=== PATIENT | female | born 1985 | race Caucasian/White ===

== ENCOUNTER 2018-10-19 23:19 | Outpatient (CLI) | payer MEDICAID | END 2018-10-20 01:45 | disposition home or self-care (01) | LOC: OBT 23:19 → L-D 23:21 | DX: O24.419 Gestational diabetes mellitus in pregnancy, unspecified control (principal); O36.8330 Maternal care for abnormalities of the fetal heart rate or rhythm, third trimester, not applicable or unspecified; Z3A.38 38 weeks gestation of pregnancy | CPT/HCPCS: 76815; 76818; 82962 ==

== ENCOUNTER 2018-10-21 10:10 | Inpatient (IN) | payer MEDICAID ==
[2018-10-21] MEDS ORDERED: METHYLERGONOVINE 0.2 MG INJ IM (10:30)
[2018-10-21] MEDS ORDERED: OXYCODONE/ASPIRIN (4.88/325) TAB PO (10:30)
[2018-10-21] MEDS ORDERED: OXYTOCIN 30 UNITS/LR 500 ML IV ×2 (10:30→11:00)
[2018-10-21] MEDS ORDERED: CARBOPROST 250 MCG INJ IM ×2 (10:30→11:00)
[2018-10-21] MEDS ORDERED: IBUPROFEN 600 MG TAB PO (10:30)
[2018-10-21] MEDS ORDERED: BUTORPHANOL 2 MG INJ IV (10:30)
[2018-10-21] MEDS ORDERED: MISOPROSTOL 200 MCG TAB PR ×2 (10:30→11:00)
[2018-10-21] MEDS: LACTATED RINGER'S 1,000 ML IV (10:33)
[2018-10-21] MEDS: AMPICILLIN 2 GM/NS (PMX) 100 ML IV (10:37)
[2018-10-21] MEDS: LIDOCAINE 1% (MPF) 30 ML INJ INJ (10:37)
[2018-10-21] MEDS ORDERED: HYDROCODONE/APAP (5/325) TAB PO ×2 (11:00)
[2018-10-21] MEDS ORDERED: SENNA/DOCUSATE NA (8.6MG/50MG) TAB PO (11:00)
[2018-10-21] MEDS ORDERED: DIPHENHYDRAMINE 50 MG INJ IV (11:00)
[2018-10-21] MEDS ORDERED: MAGNESIUM HYDROXIDE 30ML CUP PO (11:00)
[2018-10-21] MEDS ORDERED: ONDANSETRON 4 MG INJ IV (11:00)
[2018-10-21] MEDS ORDERED: NA PHOSPHATE/BIPHOS 133 ML ENEMA PR (11:00)
[2018-10-21] MEDS ORDERED: DIPHENHYDRAMINE 25 MG CAP PO (11:00)
[2018-10-21] MEDS ORDERED: ONDANSETRON 4 MG TAB PO (11:00)
[2018-10-21 11:12] LABS: ADD MAN DIFF? NO
[2018-10-21 11:16] LABS: WHITE BLOOD COUNT 14.4 10^3/ul (4.8-10.8)
[2018-10-21 11:16] LABS: BASOPHILS % 0.3 % (0.0-2.0); EOSINOPHILS % 0.1 % (0.0-7.0); HEMATOCRIT 34.5 % (37.0-47.0); HEMOGLOBIN 11.4 g/dl (12.0-16.0); LYMPHOCYTES # 1.7 10^3/ul (0.8-2.9); LYMPHOCYTES % 11.8 % (15.0-51.0); MEAN CORPUSCULAR HEMOGLOBIN 27.9 pg (29.0-33.0); MEAN CORPUSCULAR VOLUME 84.6 fl (82.0-101.0); MEAN PLATELET VOLUME 9.7 fl (7.4-10.4); MONOCYTE # 0.5 10^3/ul (0.3-0.9); MONOCYTES % 3.3 % (0.0-11.0); NEUTROPHIL # 12.1 10^3/ul (1.6-7.5); NEUTROPHILS % 84.1 % (39.0-77.0); PLATELET COUNT 330 10^3/UL (140-415); RED BLOOD COUNT 4.08 10^6/ul (4.20-5.40); RED CELL DISTRIBUTION WIDTH 14.6 % (11.5-14.5)
[2018-10-21 11:37] LABS: URIC ACID 6.4 mg/dl (3.1-7.9)
[2018-10-21 11:37] LABS: ALANINE AMINOTRANSFERASE 43 IU/L (13-69); ALBUMIN 3.9 g/dl (3.3-4.9); ALBUMIN/GLOBULIN RATIO 1.02; ALKALINE PHOSPHATASE 306 IU/L (42-121); ANION GAP 9 (5-13); ASPARTATE AMINO TRANSFERASE 30 IU/L (15-46); BILIRUBIN,INDIRECT 0.1 mg/dl (0-1.1); BILIRUBIN,TOTAL 0.1 mg/dl (0.2-1.3); BLOOD UREA NITROGEN 10 mg/dl (7-20); CALCIUM 9.4 mg/dl (8.4-10.2); CARBON DIOXIDE 20 mmol/L (21-31); CHLORIDE 108 mmol/L (97-110); CREATININE 0.44 mg/dl (0.44-1.00); Estimated GFR > 60 mL/min (>60); GLUCOSE 126 mg/dl (70-220); POTASSIUM 3.7 mmol/L (3.5-5.1); SODIUM 137 mmol/L (135-144); TOTAL PROTEIN 7.7 g/dl (6.1-8.1)
[2018-10-21 11:51] LABS: PROTIME 12.3 Sec (11.9-14.9)
[2018-10-21] MEDS: IBUPROFEN 600 MG TAB PO ×2 (12:21→17:35)
[2018-10-21] MEDS: OXYTOCIN 30 UNITS/LR 500 ML IV ×2 (12:22)
[2018-10-21 12:42] LABS: PARTIAL THROMBOPLASTIN TIME 26.9 Sec (23.0-35.0)
[2018-10-21] MEDS: AMPICILLIN 1 GM/NS (PMX) 50 ML IV (14:30)
[2018-10-21] MEDS: LACTATED RINGER'S 1,000 ML IV* ×2 (15:54→18:52)
[2018-10-21 16:03] LABS: HEPATITIS B SURFACE ANTIGEN NEGATIVE (NEGATIVE)
[2018-10-21] MEDS: WITCH HAZEL/GLYCERIN PAD PR (19:17)
[2018-10-21] MEDS: BENZOCAINE 20% 56 ML SPRAY TOP (19:17)
[2018-10-21] MEDS: DIBUCAINE 1% 30 GM OINT TOP (19:18)
[2018-10-21 23:24] LABS: RAPID PLASMA REAGIN NONREACTIVE (NR)
[2018-10-22] MEDS: SENNA/DOCUSATE NA (8.6MG/50MG) TAB PO ×3 (00:22→21:18)
[2018-10-22] MEDS: IBUPROFEN 600 MG TAB PO ×4 (00:22→18:00)
[2018-10-22] MEDS: LACTATED RINGER'S 1,000 ML IV* ×2 (05:17→18:52)
[2018-10-22 07:36] LABS: ADD MAN DIFF? NO
[2018-10-22 07:49] LABS: WHITE BLOOD COUNT 10.8 10^3/ul (4.8-10.8)
[2018-10-22 07:49] LABS: BASOPHILS % 0.3 % (0.0-2.0); EOSINOPHILS # 0.1 10^3/ul (0.0-0.5); EOSINOPHILS % 0.7 % (0.0-7.0); HEMATOCRIT 25.7 % (37.0-47.0); HEMOGLOBIN 8.3 g/dl (12.0-16.0); LYMPHOCYTES % 27.9 % (15.0-51.0); MEAN CORPUSCULAR HEMOGLOBIN 27.9 pg (29.0-33.0); MEAN CORPUSCULAR HGB CONC 32.3 g/dl (32.0-37.0); MEAN CORPUSCULAR VOLUME 86.2 fl (82.0-101.0); MEAN PLATELET VOLUME 9.6 fl (7.4-10.4); MONOCYTE # 0.6 10^3/ul (0.3-0.9); MONOCYTES % 5.5 % (0.0-11.0); NEUTROPHILS % 65.2 % (39.0-77.0); PLATELET COUNT 269 10^3/UL (140-415); RED BLOOD COUNT 2.98 10^6/ul (4.20-5.40); RED CELL DISTRIBUTION WIDTH 14.8 % (11.5-14.5)
[2018-10-22] MEDS: FERROUS SULFATE (EC) 325 MG TAB PO ×3 (10:42→21:18)
[2018-10-23] MEDS: IBUPROFEN 600 MG TAB PO ×3 (00:09→12:05)
[2018-10-23] MEDS: LANOLIN HPA 1 PKT TOP (00:09)
[2018-10-23] MEDS: MEASLES,MUMPS,RUBELLA VACCINE INJ SC* (09:00)
[2018-10-23] MEDS: DIPHTH/TET/ACEL PERTUSS (ADULT) 0.5 ML VIAL IM* (09:00)
[2018-10-23] MEDS: SENNA/DOCUSATE NA (8.6MG/50MG) TAB PO (09:00)
[2018-10-23] MEDS: VARICELLA VACCINE LIVE/PF 1,350 UNIT/0.5 ML ML SC* (09:00)
[2018-10-23] MEDS: FERROUS SULFATE (EC) 325 MG TAB PO (12:05)
== END 2018-10-23 13:05 | disposition home or self-care (01) | DRG 807 ==
LOC: OBT 10:10 → L-D 10:10 → OBT 10:16 → L-D 10:17 → PP1 14:16
PROVIDERS: Specialist
PROC: 10E0XZZ Delivery of Products of Conception, External Approach (ICD-10-PCS; principal; 2018-10-21)
PROC: 0KQM0ZZ Repair Perineum Muscle, Open Approach (ICD-10-PCS; 2018-10-21)
DX: O69.81X0 Labor and delivery complicated by cord around neck, without compression, not applicable or unspecified (principal); Z37.0 Single live birth; O70.1 Second degree perineal laceration during delivery; Z3A.39 39 weeks gestation of pregnancy
CPT/HCPCS: 80053; 84560; 85025; 85610; 85730; 86592; 86850; 86900; 86901; 87340; 90686; 90716; 99464